=== PATIENT | female | born 1955 | race Asian ===

== ENCOUNTER 2018-05-16 22:53 | Inpatient (IN) | payer BC ==
[2018-05-17] MEDS: SOD CHLORIDE 0.9% 1,000 ML IV ×2 (01:30→15:22)
[2018-05-17] MEDS ORDERED: ACETAMINOPHEN 325 MG TAB PO (01:30)
[2018-05-17] MEDS ORDERED: morphine 2 MG INJ IV (01:30)
[2018-05-17 05:08] LABS: ADD MAN DIFF? NO
[2018-05-17 05:21] LABS: WHITE BLOOD COUNT 3.7 10^3/ul (4.8-10.8)
[2018-05-17 05:21] LABS: EOSINOPHILS # 0.1 10^3/ul (0.0-0.5); EOSINOPHILS % 3.5 % (0.0-7.0); HEMATOCRIT 34.4 % (42.0-52.0); HEMOGLOBIN 10.9 g/dl (14.0-18.0); LYMPHOCYTES % 25.7 % (15.0-51.0); MEAN CORPUSCULAR HEMOGLOBIN 27.9 pg (29.0-33.0); MEAN CORPUSCULAR HGB CONC 31.7 g/dl (32.0-37.0); MEAN PLATELET VOLUME 11.5 fl (7.4-10.4); MONOCYTE # 0.2 10^3/ul (0.3-0.9); MONOCYTES % 5.7 % (0.0-11.0); NEUTROPHIL # 2.4 10^3/ul (1.6-7.5); NEUTROPHILS % 64.6 % (39.0-77.0); PLATELET COUNT 133 10^3/UL (140-415); POSITIVE DIFF @See below; RED BLOOD COUNT 3.91 10^6/ul (4.70-6.10); RED CELL DISTRIBUTION WIDTH 14.6 % (11.5-14.5)
[2018-05-17 05:42] LABS: ALANINE AMINOTRANSFERASE 309 IU/L (13-69); ALBUMIN 3.6 g/dl (3.3-4.9); ALKALINE PHOSPHATASE 199 IU/L (42-121); ANION GAP 9 (5-13); ASPARTATE AMINO TRANSFERASE 382 IU/L (15-46); BLOOD UREA NITROGEN 10 mg/dl (7-20); CALCIUM 9.1 mg/dl (8.4-10.2); CARBON DIOXIDE 24 mmol/L (21-31); CHLORIDE 108 mmol/L (97-110); CREATININE 0.64 mg/dl (0.61-1.24); Estimated GFR > 60 mL/min (>60); GLUCOSE 83 mg/dl (70-220); POTASSIUM 4.1 mmol/L (3.5-5.1); SODIUM 141 mmol/L (135-144); TOTAL PROTEIN 7.2 g/dl (6.1-8.1)
[2018-05-17] MEDS: PANTOPRAZOLE 40 MG INJ IV (06:00)
[2018-05-17 06:09] LABS: LIPASE 2782 U/L (23-300)
[2018-05-17] MEDS: ONDANSETRON 4 MG INJ IV (15:27)
[2018-05-17] MEDS: INDOMETHACIN 50 MG SUPP PR ×2 (19:00→22:00)
[2018-05-18] MEDS: SOD CHLORIDE 0.9% 1,000 ML IV ×3 (01:50→15:24)
[2018-05-18 05:43] LABS: INR 0.95; PROTIME 12.8 Sec (11.9-14.9)
[2018-05-18 05:49] LABS: ALANINE AMINOTRANSFERASE 277 IU/L (13-69); ALBUMIN 3.5 g/dl (3.3-4.9); ALKALINE PHOSPHATASE 182 IU/L (42-121); ANION GAP 10 (5-13); ASPARTATE AMINO TRANSFERASE 287 IU/L (15-46); BILIRUBIN,INDIRECT 0.7 mg/dl (0-1.1); BILIRUBIN,TOTAL 0.7 mg/dl (0.2-1.3); BLOOD UREA NITROGEN 10 mg/dl (7-20); CALCIUM 8.9 mg/dl (8.4-10.2); CARBON DIOXIDE 24 mmol/L (21-31); CHLORIDE 106 mmol/L (97-110); CREATININE 0.65 mg/dl (0.44-1.00); Estimated GFR > 60 mL/min (>60); GLUCOSE 103 mg/dl (70-220); POTASSIUM 4.3 mmol/L (3.5-5.1); SODIUM 140 mmol/L (135-144)
[2018-05-18] MEDS: PANTOPRAZOLE 40 MG INJ IV (05:55)
[2018-05-18 06:01] LABS: LIPASE 1470 U/L (23-300)
[2018-05-18] MEDS ORDERED: SEVOFLURANE 15 MIN (07:00)
[2018-05-18 07:07] LABS: CANCER ANTIGEN 19-9 < 1.4 U/ml (0.0-37.0)
[2018-05-18] MEDS: ONDANSETRON 4 MG INJ IV ×2 (11:41→14:21)
[2018-05-18] MEDS: INDOMETHACIN 50 MG SUPP PR (12:00)
[2018-05-18] MEDS ORDERED: IOHEXOL 300MG/ML 30 ML BTL (12:05)
[2018-05-18] MEDS ORDERED: PROPOFOL 20 ML (12:51)
[2018-05-18] MEDS ORDERED: CEFAZOLIN 1 GM INJ (12:51)
[2018-05-18] MEDS ORDERED: ROCURONIUM 50 MG INJ (12:51)
[2018-05-18] MEDS ORDERED: MIDAZOLAM 1 MG/ML 2 ML INJ (12:51)
[2018-05-18] MEDS ORDERED: FENTAnyl 50 MCG/ML VIAL (12:52)
[2018-05-18] MEDS ORDERED: MEPERIDINE 25 MG INJ IV (13:00)
[2018-05-18] MEDS ORDERED: HYDROmorphONE 1 MG/5 ML IV SYRINGE IV ×4 (13:00→13:30)
[2018-05-18] MEDS ORDERED: hydrALAzine 20 MG INJ IV ×2 (13:00→13:30)
[2018-05-18] MEDS ORDERED: DIPHENHYDRAMINE 50 MG INJ IV (13:00)
[2018-05-18] MEDS ORDERED: EPHEDrine SULFATE 50 MG/5 ML SYG IV ×2 (13:00→13:30)
[2018-05-18] MEDS ORDERED: FENTAnyl 50 MCG/ML VIAL IV ×6 (13:00→13:30)
[2018-05-18] MEDS ORDERED: LABETALOL HCL 20MG INJ IV ×2 (13:00→13:30)
[2018-05-18] MEDS ORDERED: METOCLOPRAMIDE 10 MG INJ IV ×2 (13:00→13:30)
[2018-05-18] MEDS ORDERED: KETOROLAC 30 MG INJ (13:25)
[2018-05-18] MEDS ORDERED: GLYCOPYRROLATE 0.4 MG INJ (13:25)
[2018-05-18] MEDS ORDERED: ONDANSETRON 4 MG INJ (13:25)
[2018-05-18] MEDS ORDERED: METOCLOPRAMIDE 10 MG INJ (13:25)
[2018-05-18] MEDS ORDERED: DEXAMETHASONE 4 MG/ML 5 ML INJ (13:25)
[2018-05-18] MEDS ORDERED: NEOSTIGMINE 3 MG/3 ML SYRINGE (13:25)
[2018-05-18] MEDS ORDERED: ONDANSETRON 4 MG INJ IV (13:30)
[2018-05-18] MEDS: HYDROmorphONE 1 MG/5 ML IV SYRINGE IV ×2 (13:59→14:14)
[2018-05-19] MEDS: SOD CHLORIDE 0.9% 1,000 ML IV (02:57)
[2018-05-19 05:37] LABS: ADD MAN DIFF? NO
[2018-05-19 05:46] LABS: HEMATOCRIT 35.8 % (37.0-47.0); HEMOGLOBIN 11.5 g/dl (12.0-16.0); MEAN CORPUSCULAR HEMOGLOBIN 27.6 pg (29.0-33.0); MEAN CORPUSCULAR HGB CONC 32.1 g/dl (32.0-37.0); MEAN CORPUSCULAR VOLUME 85.9 fl (82.0-101.0); RED BLOOD COUNT 4.17 10^6/ul (4.20-5.40)
[2018-05-19 05:46] LABS: WHITE BLOOD COUNT 3.2 10^3/ul (4.8-10.8)
[2018-05-19 05:47] LABS: ABNORMAL IP MESSAGE 1; LYMPHOCYTES # 0.5 10^3/ul (0.8-2.9); LYMPHOCYTES % 15.2 % (15.0-51.0); MEAN PLATELET VOLUME 11.9 fl (7.4-10.4); NEUTROPHIL # 2.6 10^3/ul (1.6-7.5); NEUTROPHILS % 83.2 % (39.0-77.0); PLATELET COUNT 155 10^3/UL (140-415); RED CELL DISTRIBUTION WIDTH 14.4 % (11.5-14.5)
[2018-05-19 05:50] LABS: POSITIVE DIFF @See below
[2018-05-19 05:53] LABS: ALANINE AMINOTRANSFERASE 240 IU/L (13-69); ALBUMIN 3.5 g/dl (3.3-4.9); ALBUMIN/GLOBULIN RATIO 0.97; ALKALINE PHOSPHATASE 183 IU/L (42-121); ANION GAP 9 (5-13); ASPARTATE AMINO TRANSFERASE 186 IU/L (15-46); BILIRUBIN,INDIRECT 0.5 mg/dl (0-1.1); BILIRUBIN,TOTAL 0.5 mg/dl (0.2-1.3); BLOOD UREA NITROGEN 10 mg/dl (7-20); CALCIUM 9.3 mg/dl (8.4-10.2); CARBON DIOXIDE 21 mmol/L (21-31); CHLORIDE 110 mmol/L (97-110); CREATININE 0.56 mg/dl (0.44-1.00); Estimated GFR > 60 mL/min (>60); GLUCOSE 155 mg/dl (70-220); SODIUM 140 mmol/L (135-144); TOTAL PROTEIN 7.1 g/dl (6.1-8.1)
[2018-05-19 05:58] LABS: PHOSPHORUS 3.6 mg/dl (2.5-4.9)
[2018-05-19 05:58] LABS: LIPASE 399 U/L (23-300); MAGNESIUM 1.8 mg/dl (1.7-2.5)
[2018-05-19] MEDS: PANTOPRAZOLE 40 MG INJ IV (06:29)
[2018-05-19] MEDS: GLYCERIN (ADULT) SUPP PR (17:33)
== END 2018-05-19 20:20 | disposition home or self-care (01) | DRG 445 ==
LOC: MS1 22:53
PROC: 0FC98ZZ Extirpation of Matter from Common Bile Duct, Via Natural or Artificial Opening Endoscopic (ICD-10-PCS; principal; 2018-05-18 12:30)
PROC: 0F798DZ Dilation of Common Bile Duct with Intraluminal Device, Via Natural or Artificial Opening Endoscopic (ICD-10-PCS; 2018-05-18 12:30)
PROC: BF10YZZ Fluoroscopy of Bile Ducts using Other Contrast (ICD-10-PCS; 2018-05-18 12:30)
DX: K80.50 Calculus of bile duct without cholangitis or cholecystitis without obstruction (principal); K86.1 Other chronic pancreatitis; K21.9 Gastro-esophageal reflux disease without esophagitis; K29.70 Gastritis, unspecified, without bleeding; Z90.710 Acquired absence of both cervix and uterus; Z90.49 Acquired absence of other specified parts of digestive tract
CPT/HCPCS: 74181; 74330; 80053; 83690; 83735; 84100; 85025; 85610; 86301; 88104; 88305